=== PATIENT | female | born 1950 | race African-American/Black ===

== ENCOUNTER 2018-07-04 11:17 | Day surgery (SDC) | payer OTHER ==
[2018-07-02 15:41] VITALS: BMI 25.0
--- NOTE | 2018-07-04 14:13 | HP ---
[facility] - Chief Complaint Chief Complaint: cystocele and stress incontinence History of Present Illness: cystocele repair, stress incontinence History Source: Patient Limitations to Obtaining History: No Limitations - Past Medical History Allergies/Adverse Reactions: Allergies Allergy/AdvReac Type Severity Reaction Status Date / Time No Known Allergies Allergy Verified 07/04/18 13:13 Cardiovascular: No: AFIB, Aneurysm, Aortic Insufficiency, Aortic Stenosis, CAD, CHF, Deep Vein Thrombosis, HTN, Hyperlipdemia, [place], Mitral Insufficiency, Mitral Stenosis, Murmur, Pulmonary Hypertension, Other Pulmonary: No: Asthma, Bronchitis, Cancer, COPD, O2 Dependent, Pneumonia, Previously Intubated, Pulmonary Embolus, Pulmonary Fibrosis, Sleep Apnea, Other Gastrointestinal: No: Ascites, Cancer, Constipation, Crohn's Disease, Diverticulitis, Diverticulosis, Esophageal Varices, Gastritis, GERD, GI Bleed, Hemorrhoids, Hiatal Hernia, Inflamatory Bowel Disease, Irritable Bowel Disease, Pancreatitis, Peptic Ulcer Disease, Ulcerative Colitis, Other Renal/: Yes: Other Reproductive: Yes: Other - Current Medications Current Medications: Home Medications Medication Instructions Recorded Amlodipine Besylate 5 mg PO DAILY 07/02/18 Hydrochlorothiazide 25 mg PO DAILY 07/02/18 Simvastatin 20 mg PO DAILY 07/02/18 [facility] Physical Exam - Physical Examination Vital Signs: Vital Signs Period Temp Pulse Resp BP Sys/Vegas Pulse Ox Last 24 Hr 97.0 F 64 20 149/74 100 General Appearance: Well Nourished, Well Developed, Alert & Oriented x3 ENT: Clear, No Discharge, No masses Lung: Clear to auscultation Heart: Regular rate & rhythm, Normal S1, Normal S2 Abdomen: Soft, No tenderness, No CVA Pelvic Exam: Other External Genitalia, Other Vagina (prolapse) [facility] Impression/Plan - Impression/Plan Impression: cystocele, stress incontinence Operative Procedure: cystocele repair, sling placement Date to be Performed: 07/04/18
[2018-07-04] MEDS ORDERED: MIDAZOLAM HCL 2 MG/2 ML SINGLE DOSE VIAL ONE (14:15)
[2018-07-04] MEDS ORDERED: DEXTROSE 5%-0.45% SALINE 1,000 ML IV SCH (14:15)
[2018-07-04] MEDS ORDERED: PROPOFOL 20 ML ONE (14:16)
[2018-07-04] MEDS ORDERED: VASOPRESSIN 20 UNITS/ML VIAL IV ONE (14:17)
[2018-07-04] MEDS ORDERED: ceFAZolin SODIUM 1 GM VIAL IVPB ONE (14:24)
[2018-07-04] MEDS ORDERED: IBUPROFEN 800 MG/8 ML IJ IVPB ONE (15:53)
[2018-07-04] MEDS ORDERED: ACETAMINOPHEN INJECTION 100 ML IVPB ONE (15:55)
[2018-07-04] MEDS: IBUPROFEN 800 MG/8 ML IJ IVPB SCH ×2 (16:00→20:32)
[2018-07-04] MEDS ORDERED: ONDANSETRON 4 MG/2 ML VIAL IVPUSH PRN (16:26)
[2018-07-04] MEDS ORDERED: PROMETHAZINE HCL 25 MG/1 ML VIAL IVPUSH PRN (16:26)
[2018-07-04] MEDS: ACETAMINOPHEN 1000 MG/100 ML VIAL (NON FORMULARY) IVPB ONE ×2 (16:30→20:31)
[2018-07-04] MEDS ORDERED: LACTATED RINGERS SOLUTION 1,000 ML IV SCH (16:30)
[2018-07-04] MEDS ORDERED: oxyCODONE HCL 5 MG TABLET ONE (18:11)
[2018-07-04] MEDS ORDERED: oxyCODONE HCL 5 MG TABLET PO ONE ×2 (18:15→23:15)
[2018-07-04] MEDS: oxyCODONE HCL 5 MG TABLET PO PRN (21:04)
[2018-07-05] MEDS: IBUPROFEN 800 MG/8 ML IJ IVPB SCH ×3 (01:01→17:03)
--- NOTE | 2018-07-05 01:56 | RAPID ---
Physical Examination Vital Signs: Vital Signs Temperature 97.9 F 07/04/18 22:23 Pulse Rate 96 H 07/04/18 22:23 Respiratory Rate 20 07/04/18 22:23 Blood Pressure 141/83 07/04/18 22:23 O2 Sat by Pulse Oximetry (%) 99 07/04/18 21:07 Findings/Remarks: Pt was observed obtunded, non-responsive, w/ eyes rolled back and arm twitching by nursing staff. Found to be hypotensive to 84/50. Rapid was called at 1:50 am 07/05/18. Repeat BP 113/74. At this point mentation was at baseline. Pt c/o lower abdominal pain. Denies GARCIA, CP, dizziness, SOB. Stat orders: EKG, CBC, CMP, Trop , CT A/P w/, Head CT w/o, CXR, fluids switched to D5NS @ 42, transfer to [facility]. Cardiovascular: Yes: WNL, Regular Rate and Rhythm Neurological: Yes: WNL, Alert, Oriented, Cran Nerves II-XII Intact. No: Facial Droop, Loss of Sensation, Seizure, Tingling, Tremors
[2018-07-05] MEDS ORDERED: DEXTROSE 5%-NORMAL SALINE 1,000 ML IV SCH ×2 (02:15→05:26)
[2018-07-05 02:57] LABS: BASO % 0.3 % (0-2.0); HEMOGLOBIN 10.6 GM/dL (10.7-15.3); LYMPH % 10.9 % (8-40); MCH 30.8 pg (25.7-33.7); MCHC 33.1 g/dl (32.0-36.0); MEAN CELL VOLUME 92.8 fl (80-96); MONO % 7.2 % (3.8-10.2); NEUT % 81.6 % (42.8-82.8); PLATELET COUNT 261 K/MM3 (134-434); RBC 3.45 M/mm3 (3.60-5.2); RDW 14.1 % (11.6-15.6); WHITE BLOOD COUNT 9.2 K/mm3 (4.0-10.0)
[2018-07-05 03:18] LABS: ALBUMIN 3.4 g/dl (3.4-5.0); ANION GAP 14 MMOL/L (8-16); BILIRUBIN,TOTAL 0.6 mg/dL (0.2-1.0); BLOOD UREA NITROGEN 13 mg/dL (7-18); CALCIUM 8.4 mg/dL (8.5-10.1); CHLORIDE 101 mmol/L (98-107); CO2 24 mmol/L (21-32); CREATININE 1.1 mg/dL (0.55-1.02); GLUCOSE,RANDOM 206 mg/dL (74-106); SGPT/ALT 17 U/L (12-78); SODIUM 139 mmol/L (136-145); TOT PROT 6.9 g/dl (6.4-8.2)
[2018-07-05 03:20] LABS: ALK PHOS 79 U/L (45-117)
[2018-07-05 03:31] LABS: POTASSIUM 3.6 mmol/L (3.5-5.1)
[2018-07-05 03:32] LABS: SGOT/AST 25 U/L (15-37)
[2018-07-05] MEDS ORDERED: SODIUM CHLORIDE 1,000 ML IV SCH ×2 (05:30→07:02)
[2018-07-05] MEDS ORDERED: DEXTROSE 5%-WATER - 50 ML IVPB ONE ×2 (06:00→11:25)
[2018-07-05] MEDS ORDERED: PIPERACILLIN/TAZOBACTAM 3.375 GM VIAL IVPB ONE ×2 (06:00→11:24)
[2018-07-05] MEDS: PIPERACILLIN/TAZOB 3.375 GM 3.375 GM in DEXTROSE 5%-WATER - 50 ML IVPB SCH ×2 (06:35→11:38)
--- NOTE | 2018-07-05 09:32 | CONS ---
DATE OF CONSULTATION: DATE OF DICTATION: 07/05/2018 This is a 67-year-old female. Patient is known to me, diagnosed to have hypertension, borderline dementia; underwent cystocele repair and stress incontinence repair yesterday by Dr. Melara. Postop, admitted to the telemetry floor, and consultation was called. Last night, patient had a hypotensive episode and unresponsiveness. Rapid response team came. After giving IV fluids, her sensorium and blood pressure improved. This morning, she does not have any complaints. She is talking to me, alert and oriented. PHYSICAL EXAMINATION: Vital Signs: BP 110/70, pulse 88, respirations 20, temperature 98. HEENT: Unremarkable. Neck: Supple. No JVD. Lungs: Clear. Heart: S1, S2 normal. No S3 or S4. Abdomen: Soft. Legs: No edema. Urine: Abebe is present, and urine output is clear. PLAN: Lab reports yesterday: WBC 9.2, hemoglobin 10.6. Chemistry: Electrolytes are normal. Lactic acid was high. Blood sugar was 506. Patient is on IV antibiotics. We will continue IV antibiotics and IV fluids and repeat blood work tomorrow. IMPRESSION: 1. Possible septicemia status post surgery. 2. History of hypertension. SANTIAGO JOHNSON M.D. [id number]
[2018-07-05] MEDS: D5-1/2NS+20 MEQ KCL - 20 MEQ/1,000 ML INFUS.BAG IV SCH (11:37)
--- NOTE | 2018-07-05 12:54 | PN ---
Progress Note (short form) - Note Progress Note: ID Consult dictated S/P rapid response Hypotension/ tachycardia / Lactic acidosis R/O sepsis S/P Cystocele repair/ bladder sling placement pending c/s empiric vancomycin/ cefepime
[2018-07-05] MEDS ORDERED: CEFEPIME HCL/D5W 1 GM/50 ML BAG IVPB SCH (13:00)
--- NOTE | 2018-07-05 13:26 | CONS ---
DATE OF CONSULTATION: DATE OF DICTATION: 07/05/2018 HISTORY OF PRESENT ILLNESS: The patient is a 67-year-old female evaluated for possible sepsis. She was admitted to the hospital on July 04, 2018. She underwent an elective cystocele repair and bladder sling placement for stress incontinence. Postoperatively a rapid response was called. She was apparently in bed with a Abebe catheter in place and was found to be sitting at the edge of the bed with altered mental status unresponsive to questioning. She fell back on the bed. Eyes rolled back and she began to have some twitching of the arm. A rapid response was called. She was found to have a blood pressure of 84/50 and diaphoretic. Stat EKG and blood work were done as well as a CAT scan of the head. She is now noted to have a lactic acidosis. At the present time she is awake and alert. She is seated in bed eating lunch. She complains of pelvic discomfort. She denies any fever or chills. PAST MEDICAL HISTORY: Positive for dementia and hypertension. ALLERGIES: No known allergies. MEDICATIONS: Include Zofran; oxycodone; Tylenol. SOCIAL HISTORY: She lives at home. She is a nonsmoker, nondrinker. SYSTEMS REVIEW:Neurologic: As per HPI. Cardiac: Negative chest pain or palpitations.Respiratory: Negative cough or sputum production. Gastrointestinal: Negative vomiting or diarrhea. Genitourinary: As per HPI. LABORATORY DATA: White count 9.2, hematocrit 32.0, platelet count 261. BUN 13, creatinine 1.1. Lactic acid 5.6. Liver enzymes normal. Blood and urine cultures are pending. CAT scan of the head negative for acute infarct or bleed. PHYSICAL EXAMINATION: General: She is awake and alert. She is seated in bed eating lunch in no acute distress. Vital Signs: Temperature 98, blood pressure 80/62, pulse 109, regular, respirations 22 per minute. HEENT: Sclerae are anicteric. Cardiac: Heart sounds S1, S2. Lungs: Clear. Abdomen: Soft. There is suprapubic tenderness to palpation. No mass, rebound or rigidity. Extremities: Negative for edema. IMPRESSION: 1. Status post rapid response. 2. Hypertension, lactic acidosis, tachycardia, rule out sepsis. 3. Status post cystocele repair and bladder sling placement. RECOMMENDATIONS: Pending sepsis workup empiric antibiotic coverage for possible hospital-acquired pathogens with vancomycin and cefepime. IV fluid hydration. Further recommendations pending cultures. Will follow. Thank you for the kind referral. SHAHAB PATEL M.D. [id number]
[2018-07-05] MEDS: VANCOMYCIN 1 GM PREMIX - 1 GM/200 ML BAG IVPB SCH (14:17)
--- NOTE | 2018-07-05 14:47 | PN ---
Progress Note (short form) - Note Progress Note: POD#1 - s/p cystocele repair/suburethral sling under general anesthesia. Rapid response was called last night as pt. was hypotensive and tachycardic. H/H dropped and CT pelvis showed a bleed. Surgeons aware. Presently pt. appears to be ok. No apparent anesthetic complications noted. Further management as per surgical team.
[2018-07-05] MEDS ORDERED: PIPERACILLIN/TAZOB 3.375 GM 3.375 GM in DEXTROSE 5%-WATER - 50 ML IVPB SCH (15:00)
[2018-07-05] MEDS ORDERED: PT OWN MED DRAWER 7, Y5N ONE (15:30)
[2018-07-05] MEDS: CEFEPIME HCL/D5W 1 GM/50 ML BAG IVPB SCH ×2 (15:47→18:05)
[2018-07-05 16:07] LABS: HEMATOCRIT 25.1 % (32.4-45.2); HEMOGLOBIN 8.3 GM/dL (10.7-15.3); MCH 30.5 pg (25.7-33.7); MCHC 32.9 g/dl (32.0-36.0); MEAN CELL VOLUME 92.8 fl (80-96); MEAN PLT VOLUME 8.3 fl (7.5-11.1); PLATELET COUNT 213 K/MM3 (134-434); RBC 2.71 M/mm3 (3.60-5.2); WHITE BLOOD COUNT 15.7 K/mm3 (4.0-10.0)
--- NOTE | 2018-07-05 17:15 | CON.GU ---
Consult Consult Specialty:: (for Dr. Melara) Referred by:: Wilfrido Reason for Consultation:: pelvic hematoma - History of Present Illness Chief Complaint: SUGEY, cystocele History of Present Illness: 67 yo f adm 07/04/18 w SUGEY and cystocele s/p suburethral sling and cystocele repair w [place] tissue who developed hypotension and pelvic pain post op required rapid response last night after she was found unresponsive. She underwent CT AP which demonstrated pelvic hematoma and her H/H dropped to 8 then she had 1 episode of coffee ground emesis and cons req. - History Source History Provided By: Patient, Medical Record (SUGEY, cystocele) - Past Medical History Cardio/Vascular: No: AFIB, Aneurysm, Aortic Insufficiency, Aortic Stenosis, CAD , CHF, Deep Vein Thrombosis, HTN, Hyperlipdemia, [place], Mitral Insufficiency, Mitral Stenosis, Murmur, Pulmonary Hypertension, Other Pulmonary: No: Asthma, Bronchitis, Cancer, COPD, O2 Dependent, Pneumonia, Previously Intubated, Pulmonary Embolus, Pulmonary Fibrosis, Sleep Apnea, Other Gastrointestinal: No: Ascites, Cancer, Constipation, Crohn's Disease, Diverticulitis, Diverticulosis, Esophageal Varices, Gastritis, GERD, GI Bleed, Hemorrhoids, Hiatal Hernia, Inflamatory Bowel Disease, Irritable Bowel Disease, Pancreatitis, Peptic Ulcer Disease, Ulcerative Colitis, Other Renal/: Yes: Other - Alcohol/Substance Use Hx Alcohol Use: No - Smoking History Smoking history: Never smoked Home Medications - Allergies Allergies/Adverse Reactions: Allergies Allergy/AdvReac Type Severity Reaction Status Date / Time No Known Allergies Allergy Verified 07/04/18 13:13 - Home Medications Home Medications: Ambulatory Orders Amlodipine Besylate 5 mg PO DAILY 07/02/18 Hydrochlorothiazide 25 mg PO DAILY 07/02/18 Simvastatin 20 mg PO DAILY 07/02/18 Cefuroxime Axetil [Ceftin -] 500 mg PO Q12H #20 tablet 07/04/18 Oxycodone HCl/Acetaminophen [Percocet 5-325 mg Tablet -] 1 tab PO Q4H PRN #10 tablet MDD 6 07/04/18 Review of Systems - Review of Systems Gastrointestinal: reports: Abdominal Pain Physical Exam- Vital Signs: Vital Signs Temperature 98.2 F 07/05/18 14:00 Pulse Rate 112 H 07/05/18 14:00 Respiratory Rate 19 07/05/18 14:00 Blood Pressure 107/55 07/05/18 14:00 O2 Sat by Pulse Oximetry (%) 99 07/04/18 21:07 Gastrointestinal: Yes: Soft, Tenderness (R and LLQ) Renal/: Yes: Abebe Present Extremities: Yes: WNL Labs: CBC, BMP 07/05/18 15:00 07/05/18 02:36 Imaging - Results Cat Scan: Image Reviewed Problem List - Problems (1) Pelvic hematoma in female Assessment/Plan: will repeat CT A/P if her H/H cont to fall and she may need IR to embolize Code(s): N94.89 - OTH COND ASSOC W FEMALE GENITAL ORGANS AND MENSTRUAL CYCLE (2) Anemia Assessment/Plan: transfuse 1 U prbcs, follow H/H Code(s): D64.9 - ANEMIA, UNSPECIFIED Qualifiers: Other causes of anemia: acute posthemorrhagic (3) UGI bleed Assessment/Plan: GI cons, protonix Code(s): K92.2 - GASTROINTESTINAL HEMORRHAGE, UNSPECIFIED (4) Leukocytosis Assessment/Plan: ID cons, cont iv abxs Code(s): D72.829 - ELEVATED WHITE BLOOD CELL COUNT, UNSPECIFIED
--- NOTE | 2018-07-05 17:43 | CON.GI ---
Consult Consult Specialty:: GI Referred by:: Dr Aldrich Reason for Consultation:: Coffee grounds emesis - History of Present Illness Chief Complaint: Coffee grounds emesis postoperatively. History of Present Illness: 67 y.o. female had bladder sling procedure yesterday; postoperatively became hypotensive. CT scan done this morning shows a large pelvic blood collection as well as a markedly distended stomach. Pt denies any history of ulcer disease or GI bleed. She was not given any narcotics on the williamson, and she denies any abdominal pain at present. - Past Medical History Cardio/Vascular: No: AFIB, Aneurysm, Aortic Insufficiency, Aortic Stenosis, CAD , CHF, Deep Vein Thrombosis, HTN, Hyperlipdemia, [place], Mitral Insufficiency, Mitral Stenosis, Murmur, Pulmonary Hypertension, Other Pulmonary: No: Asthma, Bronchitis, Cancer, COPD, O2 Dependent, Pneumonia, Previously Intubated, Pulmonary Embolus, Pulmonary Fibrosis, Sleep Apnea, Other Gastrointestinal: No: Ascites, Cancer, Constipation, Crohn's Disease, Diverticulitis, Diverticulosis, Esophageal Varices, Gastritis, GERD, GI Bleed, Hemorrhoids, Hiatal Hernia, Inflamatory Bowel Disease, Irritable Bowel Disease, Pancreatitis, Peptic Ulcer Disease, Ulcerative Colitis, Other Renal/: Yes: Other - Alcohol/Substance Use Hx Alcohol Use: No - Smoking History Smoking history: Never smoked Home Medications - Allergies Allergies/Adverse Reactions: Allergies Allergy/AdvReac Type Severity Reaction Status Date / Time No Known Allergies Allergy Verified 07/04/18 13:13 - Home Medications Home Medications: Ambulatory Orders Amlodipine Besylate 5 mg PO DAILY 07/02/18 Hydrochlorothiazide 25 mg PO DAILY 07/02/18 Simvastatin 20 mg PO DAILY 07/02/18 Cefuroxime Axetil [Ceftin -] 500 mg PO Q12H #20 tablet 07/04/18 Oxycodone HCl/Acetaminophen [Percocet 5-325 mg Tablet -] 1 tab PO Q4H PRN #10 tablet MDD 6 07/04/18 Home Medications (free text): Pt has not taken any Percocet. She was given the prescription to take when she was to be discharged, but has not taken any. Physical Exam-GI Vital Signs: Vital Signs Temperature 98.2 F 07/05/18 14:00 Pulse Rate 112 H 07/05/18 14:00 Respiratory Rate 19 07/05/18 14:00 Blood Pressure 107/55 07/05/18 14:00 O2 Sat by Pulse Oximetry (%) 99 07/04/18 21:07 Gastrointestinal Inspection: Yes: Distention (Lower abdomen (pelvic area) distended and dull to percussion. No succussion splash in upper abdomen/stomach area.) Labs: CBC, BMP 07/05/18 15:00 07/05/18 02:36 Imaging - Results Cat Scan: Image Reviewed (As mentioned, large pelvic hematoma and markedly distended stomach.) Assessment/Plan Pt is now eating dinner without any problems. I believe her gastric distention is a reaction to the discomfort of the pelvic hematoma. If she has more vomiting then endoscopy could be considered but I do not think she has had a significant UGI bleed.
[2018-07-05] MEDS: PANTOPRAZOLE SODIUM 40 MG VIAL IVPUSH SCH ×2 (19:14→21:04)
[2018-07-06] MEDS: IBUPROFEN 800 MG/8 ML IJ IVPB SCH ×2 (01:06→09:30)
[2018-07-06] MEDS: CEFEPIME HCL/D5W 1 GM/50 ML BAG IVPB SCH ×3 (01:07→21:16)
[2018-07-06] MEDS: VANCOMYCIN 1 GM PREMIX - 1 GM/200 ML BAG IVPB SCH ×2 (02:12→13:04)
[2018-07-06 07:41] LABS: HEMATOCRIT 24.5 % (32.4-45.2); HEMOGLOBIN 8.3 GM/dL (10.7-15.3); MCHC 33.7 g/dl (32.0-36.0); MEAN PLT VOLUME 8.2 fl (7.5-11.1); PLATELET COUNT 169 K/MM3 (134-434); RBC 2.76 M/mm3 (3.60-5.2); RDW 15.7 % (11.6-15.6); WHITE BLOOD COUNT 19.3 K/mm3 (4.0-10.0)
[2018-07-06 07:58] LABS: INR 1.23 (0.83-1.09); PROTHROMBIN TIME (PATIENT) 13.9 SEC (9.7-13.0)
[2018-07-06 08:01] LABS: ACTIVATED PTT 27.8 SECONDS (25.2-36.5)
--- NOTE | 2018-07-06 10:54 | PN ---
Progress Note, Physician Chief Complaint: Feels better History of Present Illness: S/P cystocele repair - Current Medication List Current Medications: Active Medications Potassium Chloride/Dextrose/Sod Cl (D5-1/2ns+20 Meq Kcl -) 20 meq in 1,000 mls @ 100 mls/hr IV ASDIR DAKOTAH Last Admin: 07/05/18 11:37 Dose: 100 mls/hr Cefepime HCl (Maxipime 1 Gm Premix Ivpb) 1 gm in 50 mls @ 100 mls/hr IVPB Q8H- IV DAKOTAH; Protocol Last Admin: 07/06/18 01:07 Dose: 100 mls/hr Vancomycin HCl (Vancomycin 1 Gm Premix -) 1 gm in 200 mls @ 133.333 mls/hr IVPB BID@0200,1400 DAKOTAH; Protocol Last Admin: 07/06/18 02:12 Dose: 133.333 mls/hr Ibuprofen (Caldolor Injection -) 800 mg IVPB Q8H-IV DAKOTAH Last Admin: 07/06/18 09:30 Dose: Not Given Ondansetron HCl (Zofran Injection) 4 mg IVPUSH Q6H PRN PRN Reason: NAUSEA AND/OR VOMITING Last Admin: 07/05/18 11:38 Dose: 4 mg Oxycodone HCl (Roxicodone -) 10 mg PO Q4H PRN PRN Reason: PAIN LEVEL 6-10 Last Admin: 07/04/18 21:04 Dose: 10 mg Pantoprazole Sodium (Protonix Iv) 40 mg IVPUSH BID [facility] Last Admin: 07/05/18 21:04 Dose: 40 mg - Objective Vital Signs: Vital Signs Temperature 98 F 07/06/18 08:54 Pulse Rate 88 07/06/18 08:54 Respiratory Rate 18 07/06/18 08:54 Blood Pressure 120/64 07/06/18 08:54 O2 Sat by Pulse Oximetry (%) 98 07/06/18 08:54 Constitutional: Yes: No Distress Eyes: Yes: WNL HENT: Yes: WNL, Other Cardiovascular: Yes: WNL Respiratory: Yes: WNL Gastrointestinal: Yes: WNL ...Rectal Exam: Yes: WNL Genitourinary: Yes: Abebe Present Breast(s): Yes: WNL Musculoskeletal: Yes: WNL Edema: No Neurological: Yes: Alert Labs: CBC, BMP 07/06/18 06:15 07/05/18 02:36 INR, PTT INR 1.23 (0.83-1.09) H 07/06/18 06:15 Assessment/Plan Rpt CBC ,if low will transfuse
[2018-07-06] MEDS: PANTOPRAZOLE SODIUM 40 MG VIAL IVPUSH SCH ×2 (10:59→21:16)
[2018-07-06] MEDS: D5-1/2NS+20 MEQ KCL - 20 MEQ/1,000 ML INFUS.BAG IV SCH (10:59)
[2018-07-06] MEDS: oxyCODONE HCL 5 MG TABLET PO PRN (11:44)
--- NOTE | 2018-07-06 13:47 | PN ---
Progress Note (short form) - Note Progress Note: Pt still has lower abdominal discomfort. Tolerating diet, no vomiting. Abdomen soft with minimal suprabpubic tenderness. CBC WBC 19.3 K/mm3 (4.0-10.0) H 07/06/18 06:15 RBC 2.76 M/mm3 (3.60-5.2) L 07/06/18 06:15 Hgb 8.3 GM/dL (10.7-15.3) L 07/06/18 06:15 Hct 24.5 % (32.4-45.2) L 07/06/18 06:15 MCV 89.0 fl (80-96) 07/06/18 06:15 MCH 30.0 pg (25.7-33.7) 07/06/18 06:15 MCHC 33.7 g/dl (32.0-36.0) 07/06/18 06:15 RDW 15.7 % (11.6-15.6) H D 07/06/18 06:15 Plt Count 169 K/MM3 (134-434) D 07/06/18 06:15 MPV 8.2 fl (7.5-11.1) 07/06/18 06:15 Absolute Neuts (auto) 7.5 K/mm3 (1.5-8.0) 07/05/18 02:36 Neutrophils % 81.6 % (42.8-82.8) 07/05/18 02:36 Lymphocytes % 10.9 % (8-40) 07/05/18 02:36 Monocytes % 7.2 % (3.8-10.2) 07/05/18 02:36 Eosinophils % 0.0 % (0-4.5) 07/05/18 02:36 Basophils % 0.3 % (0-2.0) 07/05/18 02:36 Nucleated RBC % 0 % (0-0) 07/05/18 02:36 Hgb unchanged but WBC now up to 19.3. This may be a reaction to blood in pelvis but it may also be a sign that the fluid has become infected. Will continue to monitor; if she spikes a temperature she may need drainage of the pelvic hematoma.
--- NOTE | 2018-07-06 14:15 | PN ---
VICKY Angelo Note Chief Complaint: pt w/o c/o POD # 2 s/p suburethral sling and cystocele repair - Objective Vital Signs: Vital Signs Temperature 98 F 07/06/18 08:54 Pulse Rate 88 07/06/18 08:54 Respiratory Rate 18 07/06/18 09:00 Blood Pressure 120/64 07/06/18 08:54 O2 Sat by Pulse Oximetry (%) 98 07/06/18 09:00 Gastrointestinal: Yes: Normal Bowel Sounds, Soft, Tenderness (SP) Labs/Additional Data: CBC, BMP 07/06/18 06:15 07/05/18 02:36 INR, PTT INR 1.23 (0.83-1.09) H 07/06/18 06:15 Blood Type Blood Type O POSITIVE 07/05/18 20:10 Antibody Screen Negative 07/05/18 17:45 Problem List - Problems (1) Pelvic hematoma in female Code(s): N94.89 - OTH COND ASSOC W FEMALE GENITAL ORGANS AND MENSTRUAL CYCLE (2) Anemia Assessment/Plan: HCT stable after 1 u PRBCs Code(s): D64.9 - ANEMIA, UNSPECIFIED Qualifiers: Other causes of anemia: acute posthemorrhagic (3) UGI bleed Code(s): K92.2 - GASTROINTESTINAL HEMORRHAGE, UNSPECIFIED (4) Leukocytosis Assessment/Plan: cont iv abxs, cultures neg, may need drainage of hematoma if becomes infected Code(s): D72.829 - ELEVATED WHITE BLOOD CELL COUNT, UNSPECIFIED
[2018-07-06] MEDS ORDERED: MAGNESIUM HYDROX 2400MG/30ML ORAL SUSPENSION 30 ML CUP PO ONE (14:22)
[2018-07-06 15:43] LABS: HEMATOCRIT 22.3 % (32.4-45.2); HEMOGLOBIN 7.6 GM/dL (10.7-15.3); MCH 30.4 pg (25.7-33.7); MCHC 34.1 g/dl (32.0-36.0); MEAN CELL VOLUME 89.1 fl (80-96); PLATELET COUNT 140 K/MM3 (134-434); RDW 15.5 % (11.6-15.6); WHITE BLOOD COUNT 17.4 K/mm3 (4.0-10.0)
[2018-07-07] MEDS: VANCOMYCIN 1 GM PREMIX - 1 GM/200 ML BAG IVPB SCH (03:29)
[2018-07-07] MEDS: CEFEPIME HCL/D5W 1 GM/50 ML BAG IVPB SCH ×3 (03:58→18:47)
[2018-07-07 07:16] LABS: HEMATOCRIT 27.3 % (32.4-45.2); HEMOGLOBIN 9.5 GM/dL (10.7-15.3); MCHC 34.8 g/dl (32.0-36.0); MEAN CELL VOLUME 86.4 fl (80-96); MEAN PLT VOLUME 7.9 fl (7.5-11.1); PLATELET COUNT 145 K/MM3 (134-434); RBC 3.17 M/mm3 (3.60-5.2)
[2018-07-07 07:59] LABS: CHLORIDE 110 mmol/L (98-107); POTASSIUM 4.2 mmol/L (3.5-5.1); SODIUM 145 mmol/L (136-145)
[2018-07-07 08:07] LABS: ALBUMIN 2.7 g/dl (3.4-5.0); ALK PHOS 56 U/L (45-117); ANION GAP 8 MMOL/L (8-16); BILIRUBIN,TOTAL 0.8 mg/dL (0.2-1.0); BLOOD UREA NITROGEN 16 mg/dL (7-18); CALCIUM 8.2 mg/dL (8.5-10.1); CO2 27 mmol/L (21-32); CREATININE 0.8 mg/dL (0.55-1.02); GLUCOSE,RANDOM 96 mg/dL (74-106); SGOT/AST 26 U/L (15-37); SGPT/ALT 15 U/L (12-78); TOT PROT 5.7 g/dl (6.4-8.2)
--- NOTE | 2018-07-07 10:14 | PN ---
Progress Note (short form) - Note Progress Note: chart reviewed she had a rapaid response after surgery for sling/cystocele repair-found to have a pelvic hematoma wbc was elevated and she was started on antiibotics no fevers still with abdominal discomfort reports no vomiting poor appetite urine is yellow Vital Signs Period Temp Pulse Resp BP Sys/Vegas Pulse Ox Last 24 Hr 98.2 F-98.5 F 84-98 18-18 115-128/51-73 100 cor-rrr lungs clear abd soft,nt ext no edema CBC, BMP 07/07/18 05:30 07/07/18 05:30 Microbiology 07/05/18 07:40 Blood - Peripheral Venous Blood Culture - Preliminary NO GROWTH OBTAINED AFTER 48 HOURS, INCUBATION TO CONTINUE FOR 3 DAYS. 07/05/18 06:25 Blood - Peripheral Venous Blood Culture - Preliminary NO GROWTH OBTAINED AFTER 48 HOURS, INCUBATION TO CONTINUE FOR 3 DAYS. 07/05/18 05:45 Urine - Urine Aebbe Urine Culture - Final NO GROWTH OBTAINED a/p s/p post op bleed- management per urology leukocytosis resolving suspect secondary to bleed d/c vancomycin today will d/w urology would be reasonable to stope cefepime in am as well
--- NOTE | 2018-07-07 11:02 | PN ---
Progress Note, Physician Chief Complaint: feels better - Current Medication List Current Medications: Active Medications Potassium Chloride/Dextrose/Sod Cl (D5-1/2ns+20 Meq Kcl -) 20 meq in 1,000 mls @ 100 mls/hr IV ASDIR DAKOTAH Last Admin: 07/06/18 10:59 Dose: 100 mls/hr Cefepime HCl (Maxipime 1 Gm Premix Ivpb) 1 gm in 50 mls @ 100 mls/hr IVPB Q8H- IV DAKOTAH; Protocol Last Admin: 07/07/18 03:58 Dose: 100 mls/hr Ondansetron HCl (Zofran Injection) 4 mg IVPUSH Q6H PRN PRN Reason: NAUSEA AND/OR VOMITING Last Admin: 07/05/18 11:38 Dose: 4 mg Oxycodone HCl (Roxicodone -) 10 mg PO Q4H PRN PRN Reason: PAIN LEVEL 6-10 Last Admin: 07/06/18 11:44 Dose: 10 mg Pantoprazole Sodium (Protonix Iv) 40 mg IVPUSH BID DAKOTAH Last Admin: 07/06/18 21:16 Dose: 40 mg - Objective Vital Signs: Vital Signs Temperature 98.4 F 07/07/18 06:00 Pulse Rate 84 07/07/18 06:00 Respiratory Rate 18 07/07/18 06:00 Blood Pressure 122/64 07/07/18 06:00 O2 Sat by Pulse Oximetry (%) 100 07/06/18 21:00 Constitutional: Yes: Mild Distress Eyes: Yes: WNL HENT: Yes: WNL Neck: Yes: WNL Respiratory: Yes: WNL Gastrointestinal: Yes: Normal Bowel Sounds ...Rectal Exam: Yes: WNL Breast(s): Yes: WNL Musculoskeletal: Yes: Muscle Weakness Neurological: Yes: Alert Labs: CBC, BMP 07/07/18 05:30 07/07/18 05:30 INR, PTT INR 1.23 (0.83-1.09) H 07/06/18 06:15 Assessment/Plan DC IV fluids
[2018-07-07] MEDS: PANTOPRAZOLE SODIUM 40 MG VIAL IVPUSH SCH ×2 (11:04→21:32)
--- NOTE | 2018-07-07 14:06 | EKG ---
Test Reason : Blood Pressure : / mmHG Vent. Rate : 123 BPM Atrial Rate : 300 BPM P-R Int : 000 ms QRS Dur : 080 ms QT Int : 432 ms P-R-T Axes : 000 073 071 degrees QTc Int : 618 ms SINUS TACHYCARDIA NO PREVIOUS ECGS AVAILABLE Confirmed by JUDIE LAWSON MD ([id number]) on 07/07/2018 2:06:10 PM Referred By: Confirmed By:JUDIE LAWSON MD
[2018-07-07] MEDS ORDERED: PT OWN MED DRAWER 7, Y5N ONE (18:44)
[2018-07-07] MEDS: oxyCODONE HCL 5 MG TABLET PO PRN (21:32)
[2018-07-08] MEDS ORDERED: PT OWN MED DRAWER 7, Y5N ONE ×2 (02:32→08:57)
[2018-07-08] MEDS: CEFEPIME HCL/D5W 1 GM/50 ML BAG IVPB SCH ×2 (02:39→09:01)
[2018-07-08 06:46] LABS: HEMOGLOBIN 9.2 GM/dL (10.7-15.3); MCH 29.9 pg (25.7-33.7); MCHC 34.2 g/dl (32.0-36.0); MEAN CELL VOLUME 87.4 fl (80-96); MEAN PLT VOLUME 8.4 fl (7.5-11.1); PLATELET COUNT 161 K/MM3 (134-434); RBC 3.08 M/mm3 (3.60-5.2); RDW 15.2 % (11.6-15.6); WHITE BLOOD COUNT 11.3 K/mm3 (4.0-10.0)
[2018-07-08 09:15] VITALS: BP 140/80; PULSE 86; TEMP 98
--- NOTE | 2018-07-08 09:43 | DS ---
Physical Examination Vital Signs: Vital Signs Temperature 98 F 07/08/18 09:00 Pulse Rate 86 07/08/18 09:00 Respiratory Rate 20 07/08/18 09:00 Blood Pressure 140/80 07/08/18 09:00 O2 Sat by Pulse Oximetry (%) 98 07/07/18 09:00 Findings/Remarks: S/P cystocele,was bleeding Now stopped,Hb Hct stable Constitutional: Yes: No Distress Eyes: Yes: WNL HENT: Yes: WNL Neck: Yes: WNL Cardiovascular: Yes: WNL Respiratory: Yes: WNL Gastrointestinal: Yes: WNL ...Rectal Exam: Yes: WNL Renal/: Yes: WNL Extremities: Yes: WNL Edema: No Peripheral Pulses WNL: Yes Integumentary: Yes: WNL Neurological: Yes: Alert ...Motor Strength: WNL Psychiatric: Yes: Alert Labs: CBC, BMP 07/08/18 05:30 07/07/18 05:30 Discharge Summary Reason For Visit: URINARY INCONTINENCE/ CYSTOCELE Condition: Good - Instructions Diet, Activity, Other Instructions: no heavy lifting or sexual relations for one month. follow up in office at [address] [place] [address], [address]. 9am on saturdayJuly 07. Disposition: HOME - Home Medications Comprehensive Discharge Medication List: Ambulatory Orders Amlodipine Besylate 5 mg PO DAILY 07/02/18 Hydrochlorothiazide 25 mg PO DAILY 07/02/18 Simvastatin 20 mg PO DAILY 07/02/18 Cefuroxime Axetil [Ceftin -] 500 mg PO Q12H #20 tablet 07/04/18 Oxycodone HCl/Acetaminophen [Percocet 5-325 mg Tablet -] 1 tab PO Q4H PRN #10 tablet MDD 6 07/04/18
[2018-07-08] MEDS: PANTOPRAZOLE SODIUM 40 MG VIAL IVPUSH SCH (09:56)
[2018-07-08] MEDS ORDERED: ATORVASTATIN CA 10 MG TABLET (FP) PO SCH (22:00)
--- NOTE | 2018-07-09 12:24 | PATH ---
Surgical Pathology Report Patient Name: AGUSTO HILLS [facility]. Rec. #: [id number] /Age/Gender: 1950 (Age: 67) / F Account: [id number] Location: U SURGICAL Taken: 07/04/2018 Received: 07/08/2018 Reported: 07/09/2018 Physicians: Yifan Melara M.D. Specimen(s) Received ANTERIOR VAGINAL MUCOSA Clinical History Urinary incontinence Final Diagnosis ANTERIOR VAGINAL MUCOSA, CYSTOCELE REPAIR, SUBURETHRAL SLING PROCEDURE: VAGINAL SQUAMOUS MUCOSA WITH PARAKERATOSIS. Electronically Signed Susan Gresham M.D. Gross Description Received in formalin labeled "anterior vaginal mucosa," are 2 og, unoriented portions of soft tissue measuring 4.0 x 2.5 x 0.4 cm and 6.0 x 2.8 x 0.5 cm, consistent with vaginal mucosa. [employer]vicult[employer] Teacher sections are submitted in one cassette. /07/08/2018 [facility]07/08/2018
--- NOTE | 2018-07-18 11:53 | OP ---
DATE OF OPERATION: 07/04/2018 PREOPERATIVE DIAGNOSES: 1. Bladder prolapse, grade 4. 2. Stress incontinence. POSTOPERATIVE DIAGNOSES: 1. Bladder prolapse, grade 4. 2. Stress incontinence. PROCEDURE: Cystocele repair, suburethral sling, and enterocele repair. SURGEON: Yifan Melara MD ESTIMATED BLOOD LOSS: 25 mL. DRAINS: Abebe catheter. PREOPERATIVE INDICATIONS: Patient a 67-year-old female with extensive bladder prolapse which is uncomfortable. It is rated as a grade 4+ cystocele. She comes to the OR today for repair as well as suburethral sling. DESCRIPTION OF PROCEDURE: Patient was brought to the OR, placed on the table in supine position, given general anesthesia and IV antibiotics, and placed in the modified lithotomy position. The groin was prepped and draped sterilely. Abebe catheter was placed. Pitressin was injected along the vaginal mucosa overlying the prolapsed bladder. The vaginal mucosa was then sharply dissected off the perivascular tissues in the lateral fashion. Of note, at the posterior aspect of the incision, a small cystocele was also noted. This was repaired separately. The bladder prolapse was repaired with a pursestring suture for the central defect and sutures were placed laterally in the arcus tendineus to bring together the muscle to lift the lateral defects of the cystocele. Cystoscopy was then performed which revealed no evidence of any stitches in the bladder. Both ureters had clear efflux. Otherwise, the bladder looked unremarkable. However, it also appeared to be in a much better anatomical position with a raised trigone as is normal. The incision was then closed in 2 layers using 2-0 Vicryl suture. A good repair was noted at this time. Hemostasis was maintained at this time. A sling was then placed. Pitressin was injected along the mid portion of the urethra in the midline of the vaginal mucosa. This was then incised, and the vaginal mucosa was sharply dissected off the periurethral tissues. Using a mini sling, the Atlus Sling, a trocar was placed through the incision, under fingertip control, towards the obturator canal bilaterally. No evidence of perforation of the vaginal mucosa was seen. No buttonholing was seen. Cystoscopy was then performed, and again good efflux was seen bilaterally, and no evidence of perforation of the bladder was seen. The suture to tighten the sling was used, and the sling was tightened so there was a tension free flat placement of the sling material on the mid portion of the urethra. The excess suture was then excised. The vaginal mucosa was then closed in 2 layers. Good hemostasis was observed at this time. Abebe catheter was then placed, and a vaginal packing left in place as well. Patient was woken up. Darlin [id number]
== END 2018-07-08 11:26 | disposition home or self-care (01) ==
LOC: JASU-SURG 11:17 → J8W 19:15 → J4W 07-05 05:01 → JASU-SURG 07-08 11:26
PROVIDERS: ATTEND Urology
PROC: 0JQC0ZZ Repair Pelvic Region Subcutaneous Tissue and Fascia, Open Approach (ICD-10-PCS; 2018-07-04)
PROC: 0UQF7ZZ Repair Cul-de-sac, Via Natural or Artificial Opening (ICD-10-PCS; principal; 2018-07-04 14:00)
PROC: 30233N1 Transfusion of Nonautologous Red Blood Cells into Peripheral Vein, Percutaneous Approach (ICD-10-PCS; 2018-07-04 14:00)
DX: N39.3 Stress incontinence (female) (male) (principal); N81.10 Cystocele, unspecified; N81.5 Vaginal enterocele; I95.81 Postprocedural hypotension; D62 Acute posthemorrhagic anemia
CPT/HCPCS: 36415; 36430; 70450-TC; 71045-TC-FY; 74176-TC; 74177-TC; 80053; 82962; 83605; 84484; 85025; 85027; 85610; 85730; 86850; 86900; 86901; 86922; 87040; 87086; 88302-TC; 93005; 93010; 94760; J0131; J7030; P9038; P9058